=== PATIENT | female | born 1980 | race Caucasian/White ===

== ENCOUNTER 2018-06-07 17:52 | Emergency (ER) | payer BC | END 2018-06-07 17:59 | disposition left against medical advice (07) | LOC: JD.ED 17:52 | DX: Z53.21 Procedure and treatment not carried out due to patient leaving prior to being seen by health care provider (principal) ==

== ENCOUNTER 2020-02-23 14:23 | Emergency (ER) | payer BC, OTHER ==
[2020-02-23] MEDS ORDERED: HYDROmorphone 0.5 MG/0.5 ML Syringe IVPUSH ONE (14:45)
[2020-02-23] MEDS ORDERED: Iopamidol 612 MG/ML 100 ML Bottle IVPUSH ONE (14:47)
[2020-02-23] MEDS ORDERED: Sodium Chloride 0.9% 10 ML Syringe FLUSH PRN (14:47)
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
--- NOTE | 2020-02-23 15:35 | CR ---
Chest: Portable view of the chest was obtained. Comparison: Prior chest x-ray of 09/17/11. Heart size and mediastinum are normal. Lungs are clear with no acute parenchymal change. No discrete bony abnormality is appreciated. Surgical clips are seen from prior cholecystectomy. Impression: 1. Nothing acute is appreciated on portable chest x-ray. Diagnostic code #2
--- NOTE | 2020-02-23 15:41 | CR ---
Pelvis: AP view of the pelvis was obtained. Comparison: No prior pelvic x-rays available. Joint spaces within both hips are maintained. Very minimal spur is noted off the superior greater trochanter of the right hip. There is a partial transitional segment on the right side at the lumbosacral junction causing pseudoarticulation. Calcifications are seen within the pelvis which are compatible with phleboliths. Impression: 1. Partial transitional segment on the right side at the lumbosacral junction. 2. Minimal spur off the superior greater trochanter of the right hip. Diagnostic code #2
--- NOTE | 2020-02-23 15:45 | CT ---
CT cervical spine Technique: Multiple axial sections were obtained from above C1 inferiorly through the T1-2 disc. Reconstructed coronal and sagittal images were obtained. Findings: Vertebral body heights and disc spaces are maintained. Vertebral bodies and posterior arches are intact with no fracture being seen. Slight deformity is noted to the right first rib possibly due to old injury which appears healed. No acute fracture or subluxation is appreciated. Impression: 1. Nothing acute is appreciated on CT study of the cervical spine. Diagnostic code #1
--- NOTE | 2020-02-23 15:51 | CT ---
Head CT Technique: Multiple axial sections through the brain were obtained. Intravenous contrast was not utilized. Reconstructed coronal and sagittal images were obtained. Findings: Ventricles along with basal cisterns and sulci over the convexities are within normal limits for the patient's age. No abnormal parenchymal densities are seen. No evidence of intracranial hemorrhage. No midline shift or mass-effect is appreciated. Bone window settings were reviewed. Visualized paranasal sinuses and mastoid sinuses show nothing acute. No acute calvarial abnormality is appreciated. Impression: 1. Nothing acute is seen on noncontrast head CT exam. Diagnostic code #1
--- NOTE | 2020-02-23 15:53 | CT ---
CT chest Technique: Multiple axial sections were obtained from above the lung apices inferiorly through the lung bases. Intravenous contrast was utilized. Findings: Mediastinum and hilar regions appear without adenopathy or mass. Thoracic aorta shows no aneurysm. No pericardial thickening is seen. Small portion of the visualized upper abdominal structures show prior cholecystectomy with no acute abnormality being seen. Very slight atelectasis is seen within both posterior lungs. Lungs otherwise are clear with no acute parenchymal change. No pneumothorax is seen. Bone window settings were reviewed which show no acute osseous finding. Impression: 1. Nothing acute is identified on CT study of the chest. Diagnostic code #1
--- NOTE | 2020-02-23 15:57 | CR ---
Left humerus: 2 views of the left humerus were obtained. Comparison: No prior humerus study is available. Joint spaces are fairly well-preserved as seen. No acute fracture or other bony abnormality is appreciated. Impression: 1. No abnormality is appreciated on 2 view left humerus study. Diagnostic code #1
== END 2020-02-23 17:08 | disposition home or self-care (01) ==
LOC: JD.ED 14:23
DX: S06.0X1A Concussion with loss of consciousness of 30 minutes or less, initial encounter (principal); S40.012A Contusion of left shoulder, initial encounter; S30.811A Abrasion of abdominal wall, initial encounter; S70.312A Abrasion, left thigh, initial encounter; F17.210 Nicotine dependence, cigarettes, uncomplicated; V03.90XA Pedestrian on foot injured in collision with car, pick-up truck or van, unspecified whether traffic or nontraffic accident, initial encounter
CPT/HCPCS: 36415; 70450; 71045; 71260; 72125; 72170; 73060; 80053; 84703; 85025; 86850; 86900; 86901; 96374; 99285; J1170; Q9967; 99284

== ENCOUNTER 2020-02-28 14:18 | Emergency (ER) | payer BC, OTHER ==
[2020-02-28 14:34] VITALS: BP 125/74; PULSE 78
[2020-02-28] MEDS ORDERED: Ondansetron 4 MG Tab.DIS PO ONE (15:03)
--- NOTE | 2020-02-28 15:50 | CT ---
Head CT Technique: Multiple axial sections through the brain were obtained. Intravenous contrast was not utilized. Comparison: Prior head CT study of 02/23/20. Findings: Ventricles along with basal cisterns and sulci over the convexities are within normal limits for the patient's age. No abnormal parenchymal densities are seen. No evidence of intracranial hemorrhage. No midline shift or mass-effect is appreciated. Bone window settings were reviewed which shows no acute calvarial abnormality. Visualized mastoid and paranasal sinuses show nothing acute. Impression: 1. Nothing acute is appreciated on noncontrast head CT exam. Diagnostic code #1
[2020-02-28] MEDS ORDERED: Meclizine 12.5 MG Tab PO ONE (16:47)
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
== END 2020-02-28 17:12 | disposition home or self-care (01) ==
LOC: JD.ED 14:18
DX: S06.0X9A Concussion with loss of consciousness of unspecified duration, initial encounter (principal); F17.210 Nicotine dependence, cigarettes, uncomplicated; Z90.49 Acquired absence of other specified parts of digestive tract; V03.99XA Pedestrian with other conveyance injured in collision with car, pick-up truck or van, unspecified whether traffic or nontraffic accident, initial encounter; Y93.01 Activity, walking, marching and hiking
CPT/HCPCS: 70450; 99284; A9270

== ENCOUNTER 2020-03-23 17:46 | Emergency (ER) | payer SELFPAY ==
[2020-03-23 18:02] VITALS: BP 125/61; PULSE 90
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
--- NOTE | 2020-03-23 19:05 | CT ---
Head CT Technique: Multiple axial sections through the brain were obtained. Intravenous contrast was not utilized. Reconstructed coronal and sagittal images were obtained. Comparison: Prior head CT study of 02/28/20. Findings: Ventricles along with basal cisterns and sulci over the convexities appear within normal limits for the patient's age. No abnormal parenchymal densities are seen. No evidence of intracranial hemorrhage. No midline shift or mass-effect is seen. Bone window settings were reviewed. Visualized mastoid sinuses and paranasal sinuses show nothing acute. No acute calvarial abnormality is appreciated. Impression: 1. Nothing acute is appreciated on noncontrast head CT exam. Diagnostic code #1
--- NOTE | 2020-03-23 19:10 | CT ---
CT cervical spine Technique: Multiple axial sections were obtained from above C1 inferiorly to the mid T2 level. Reconstructed coronal and sagittal images were obtained. Comparison: Prior CT cervical spine study of 09/17/11. Findings: Cervical spine is held in slight flexion. Vertebral body heights and disc spaces are maintained. No bony central or bony neural foraminal stenosis is seen. No fracture is appreciated. No abnormal subluxation is appreciated. There is mild deformity of the right first rib which is similar to prior study compatible with old healed fracture. Impression: 1. Cervical spine held in flexion. This is most likely positional. 2. Findings compatible with old healed fracture within the right first rib. 2. No acute abnormality is appreciated. Diagnostic code #2
--- NOTE | 2020-03-23 19:11 | CT ---
CT facial bones Technique: Multiple axial sections through the facial bones were obtained. Reconstructed coronal and sagittal images were obtained. Findings: Mastoid sinuses are clear. There is an air-fluid level being seen within the posterior right maxillary sinus which was not seen or included on prior head CT. There is a blowout fracture of the inferior right orbital floor. There is a bony fragment descending into the maxillary sinus on the right side by about 1.0 cm. This defect does not include the extraocular muscle. Impression: 1. Depressed right maxillary sinus floor fracture. No extension of any extraocular muscles are noted. Depression is about 1 cm. 2. Fluid within the right maxillary sinus compatible with blood. 3. No additional acute abnormality is appreciated. Diagnostic code #3
== END 2020-03-23 19:52 | disposition home or self-care (01) ==
LOC: JD.ED 17:46
DX: S02.30XB Fracture of orbital floor, unspecified side, initial encounter for open fracture (principal); S06.0X1A Concussion with loss of consciousness of 30 minutes or less, initial encounter; S10.93XA Contusion of unspecified part of neck, initial encounter; S60.411A Abrasion of left index finger, initial encounter; S00.83XA Contusion of other part of head, initial encounter; F17.210 Nicotine dependence, cigarettes, uncomplicated; Y04.0XXA Assault by unarmed brawl or fight, initial encounter
CPT/HCPCS: 70450; 70450-26; 70486; 70486-26; 72125; 72125-26; 99284; 99284-25

== ENCOUNTER 2020-11-18 00:51 | Emergency (ER) | payer SELFPAY ==
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
[2020-11-18] MEDS: Ondansetron 4 MG Tab.DIS PO ONE (03:00)
[2020-11-18 03:51] VITALS: BP 123/75; PULSE 105
== END 2020-11-18 03:15 | disposition home or self-care (01) ==
LOC: JD.ED 00:51
DX: F41.0 Panic disorder [episodic paroxysmal anxiety] (principal); F17.210 Nicotine dependence, cigarettes, uncomplicated
CPT/HCPCS: 99283; A9270

== ENCOUNTER 2021-01-26 00:18 | Emergency (ER) | payer SELFPAY ==
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
[2021-01-26 02:00] VITALS: BP 123/93; PULSE 84
--- NOTE | 2021-01-26 07:38 | CT ---
CT cervical spine Technique: Multiple axial sections were obtained from above the C1 inferiorly to the top of T5. Reconstructed coronal and sagittal images were obtained. Comparison: Prior CT cervical spine study of 03/23/20. Findings: Motion artifact is noted within the cervical spine. Within this limitation, no discrete fracture is appreciated. No bony central or bony neural foraminal stenosis is seen. No abnormal subluxation is seen. Slight mucosal thickening is noted within the inferior right maxillary sinus which I believe is chronic. Visualized lungs show nothing acute. Impression: 1. Motion artifact. Within this limitation, no definite acute abnormality is appreciated on CT study of the cervical spine. Diagnostic code #2 I agree with preliminary report from [facility], finalized on 01/26/21, 2:38 AM BEEF BREAKER, code 1
--- NOTE | 2021-01-26 07:39 | CT ---
Head CT Technique: Multiple axial sections through the brain were obtained. Intravenous contrast was not utilized. Reconstructed coronal and sagittal images were obtained. Comparison: Prior head CT study of 03/23/20. Ventricles along with basal cisterns and sulci over the convexities are within normal limits for the patient's age. No abnormal parenchymal densities are seen. No evidence of intracranial hemorrhage is seen. No midline shift or mass-effect is seen. Soft tissue swelling is noted within the posterior scalp. Bone window settings were reviewed. Visualized mastoid sinuses are clear. Visualized paranasal sinuses show nothing acute. No acute calvarial abnormality is appreciated. Impression: 1. Posterior soft tissues swelling within the scalp. 2. Mild motion artifact. 3. No acute intracranial abnormality is identified. Diagnostic code #2 I agree with preliminary report from [facility], finalized on 01/26/21, 2:41 AM EDUCATION ASSISTANT, code 1
== END 2021-01-26 01:55 | disposition home or self-care (01) ==
LOC: JD.ED 00:18
DX: S00.03XA Contusion of scalp, initial encounter (principal); F10.129 Alcohol abuse with intoxication, unspecified; W17.89XA Other fall from one level to another, initial encounter; Y92.89 Other specified places as the place of occurrence of the external cause
CPT/HCPCS: 70450; 70450-26; 72125; 72125-26; 99283; 99284-25

== ENCOUNTER 2022-02-02 19:49 | Emergency (ER) | payer SELFPAY ==
[2022-02-02] MEDS ORDERED: Sodium Chloride 0.9% 1,000 ML IV ONE ×2 (20:12→22:16)
[2022-02-03] MEDS ORDERED: Potassium Chloride 20 MEQ Tab.ER PO ONE (01:52)
[2022-02-03] MEDS ORDERED: Ondansetron 4 MG/2 ML SDV IVPUSH ONE (03:00)
[2022-02-03 04:43] VITALS: BP 114/79; PULSE 95
== END 2022-02-03 04:45 | disposition home or self-care (01) ==
LOC: JD.ED 19:49
DX: K52.9 Noninfective gastroenteritis and colitis, unspecified (principal); R06.4 Hyperventilation; F17.210 Nicotine dependence, cigarettes, uncomplicated; Z90.49 Acquired absence of other specified parts of digestive tract
CPT/HCPCS: 36415; 80053; 81001; 81025; 83690; 83735; 85007; 85027; 96361; 96365; 96375; 99284; A9270; J2405; J3475; J7030

== ENCOUNTER 2025-01-16 11:09 | Emergency (ER) | payer MEDICAID ==
[2025-01-16 11:20] VITALS: PULSE 84
[2025-01-16] MEDS ORDERED: Sodium Chloride 0.9% 10 ML Syringe FLUSH PRN (11:58)
[2025-01-16 12:11] LABS: BASOPHILS ABSOLUTE AUTO 0.0 K/mm3 (0.0-0.2); BASOPHILS PERCENT AUTO 0.7 % (0.0-1.0); EOSINOPHILS ABSOLUTE AUTO 0.2 K/mm3 (0.0-0.4); EOSINOPHILS PERCENT AUTO 3.2 % (0.0-6.0); IMMATURE GRAN ABSOLUTE AUTO 0.02 K/mm3 (0.00-0.05); IMMATURE GRAN PERCENT AUTO 0.4 % (0.0-0.4); LYMPHOCYTES ABSOLUTE AUTO 2.3 K/mm3 (1.0-4.8); LYMPHOCYTES PERCENT AUTO 40.8 % (24.0-44.0); MEAN PLATELET VOLUME 8.5 fl (9.4-12.3); MONOCYTES ABSOLUTE AUTO 0.3 K/mm3 (0.0-0.8); MONOCYTES PERCENT AUTO 6.0 % (0.0-8.0); NEUTROPHILS ABSOLUTE AUTO 2.7 K/mm3 (1.8-7.7); NEUTROPHILS PERCENT AUTO 48.9 % (41.0-71.0); NRBC ABSOLUTE 0.00 (0.00-0.02); NRBC PERCENT 0.0 % (0.0-0.2); PLATELET COUNT,PLT 265 K/mm3 (150-400); RED BLOOD CELL COUNT 4.54 M/mm3 (4.10-5.30); WHITE BLOOD CELL COUNT,WBC 5.54 K/mm3 (3.9-11.3)
[2025-01-16 12:37] LABS: A/G RATIO 1.1 (1-2); ALANINE AMINOTRANSFERASE,ALT 29 U/L (14-59); ASPARTATE AMNIOTRANSFERASE,AST 19 U/L (15-37); BILIRUBIN TOTAL 0.4 mg/dL (0.2-1.0); BLOOD UREA NITROGEN,BUN 8 mg/dL (7-18); CHLORIDE,CL 104 mEq/L (98-107); CREATININE 0.6 mg/dL (0.55-1.02); EST CRCL DRUG DOSING (CG) 95.62 mL/min; ESTIMATED GFR 114 mL/min (>60); GLUCOSE RANDOM 96 mg/dL (70-99); POTASSIUM,K 4.3 mEq/L (3.5-5.1); PROTEIN TOTAL,TP 7.8 g/dl (6.4-8.2); SODIUM,NA 141 mEq/L (136-145); TROPONIN I HIGH SENSITIVITY < 4 pg/mL (<=51)
[2025-01-16 12:38] LABS: CARBON DIOXIDE,CO2 31 mEq/L (21-32)
[2025-01-16 14:00] VITALS: BP 114/69
== END 2025-01-16 13:45 | disposition home or self-care (01) ==
LOC: JD.ED 11:09
DX: R55 Syncope and collapse (principal); F17.200 Nicotine dependence, unspecified, uncomplicated; Z90.49 Acquired absence of other specified parts of digestive tract
CPT/HCPCS: 36415; 70450; 71045; 80053; 83735; 83880; 84484; 84703; 85025; 93005; 93246; 96360; 99285; J7030

== ENCOUNTER 2025-01-24 16:37 | Emergency (ER) | payer MEDICAID ==
[2025-01-24] MEDS ORDERED: Sodium Chloride 0.9% 10 ML Syringe FLUSH PRN (16:55)
[2025-01-24 17:40] LABS: BASOPHILS ABSOLUTE AUTO 0.1 K/mm3 (0.0-0.2); BASOPHILS PERCENT AUTO 0.7 % (0.0-1.0); EOSINOPHILS ABSOLUTE AUTO 0.2 K/mm3 (0.0-0.4); EOSINOPHILS PERCENT AUTO 2.1 % (0.0-6.0); IMMATURE GRAN ABSOLUTE AUTO 0.02 K/mm3 (0.00-0.05); IMMATURE GRAN PERCENT AUTO 0.2 % (0.0-0.4); LYMPHOCYTES ABSOLUTE AUTO 2.1 K/mm3 (1.0-4.8); LYMPHOCYTES PERCENT AUTO 23.2 % (24.0-44.0); MEAN PLATELET VOLUME 8.8 fl (9.4-12.3); MONOCYTES ABSOLUTE AUTO 0.5 K/mm3 (0.0-0.8); MONOCYTES PERCENT AUTO 5.0 % (0.0-8.0); NEUTROPHILS ABSOLUTE AUTO 6.3 K/mm3 (1.8-7.7); NEUTROPHILS PERCENT AUTO 68.8 % (41.0-71.0); NRBC ABSOLUTE 0.00 (0.00-0.02); NRBC PERCENT 0.0 % (0.0-0.2); PLATELET COUNT,PLT 285 K/mm3 (150-400); RED BLOOD CELL COUNT 4.22 M/mm3 (4.10-5.30); WHITE BLOOD CELL COUNT,WBC 9.07 K/mm3 (3.9-11.3)
[2025-01-24 18:08] LABS: A/G RATIO 1.1 (1-2); ALANINE AMINOTRANSFERASE,ALT 26 U/L (14-59); ASPARTATE AMNIOTRANSFERASE,AST 16 U/L (15-37); BILIRUBIN TOTAL 0.4 mg/dL (0.2-1.0); BLOOD UREA NITROGEN,BUN 8 mg/dL (7-18); CARBON DIOXIDE,CO2 27 mEq/L (21-32); CHLORIDE,CL 105 mEq/L (98-107); CREATININE 0.6 mg/dL (0.55-1.02); EST CRCL DRUG DOSING (CG) 95.62 mL/min; ESTIMATED GFR 114 mL/min (>60); GLUCOSE RANDOM 90 mg/dL (70-99); POTASSIUM,K 4.3 mEq/L (3.5-5.1); PROTEIN TOTAL,TP 7.5 g/dl (6.4-8.2); SODIUM,NA 141 mEq/L (136-145); TSH 0.837 uIU/mL (0.358-3.74)
[2025-01-24 18:17] LABS: ETHANOL BLOOD MEDICAL 0.00 gm% (0.00); TROPONIN I HIGH SENSITIVITY < 4 pg/mL (<=51)
[2025-01-24 20:07] LABS: APPEARANCE,URINE SLT CLOUDY (Clear); GLUCOSE,URINE NEGATIVE (Negative); OCCULT BLOOD,URINE NEGATIVE (Negative)
[2025-01-24 20:13] LABS: BUPRENORPHINE SCREEN,URINE NEGATIVE (CUTOFF=10); METHADONE SCREEN, URINE NEGATIVE (CUTOFF=200); METHAMPHETAMINES SCREEN, URINE NEGATIVE (CUTOFF=500); OXYCODONE SCREEN,URINE NEGATIVE (CUT0FF=100); THC SCREEN,URINE 20 NG/ML PRESUMPTIVE POSITIVE (CUTOFF=50)
[2025-01-24 20:20] LABS: AMPHETAMINES SCREEN, URINE NEGATIVE (CUTOFF=500)
[2025-01-24 20:43] VITALS: BP 109/72; PULSE 82
== END 2025-01-24 20:42 | disposition home or self-care (01) ==
LOC: JD.ED 16:37
DX: R55 Syncope and collapse (principal); Z90.49 Acquired absence of other specified parts of digestive tract
CPT/HCPCS: 36415; 71045; 71045-26; 80053; 80306; 80307; 81003; 83735; 83880; 84443; 84484; 84703; 85025; 93005; 99285-25